=== PATIENT | male | born 1935 | race Asian ===

== ENCOUNTER 2016-02-29 11:38 | Inpatient (IN) | END 2016-03-07 13:15 | disposition home or self-care (01) | DRG 190 ==

== ENCOUNTER 2016-07-15 08:16 | Outpatient (CLI) | payer MEDICARE, MEDICAID ==
[2016-07-15 12:44] LABS: ALBUMIN/GLOBULIN RATIO 1.5 (1.0-2.2); BILIRUBIN,TOTAL 0.6 mg/dL (0.2-1.0); BUN - BLOOD UREA NITROGEN 13 mg/dL (6-20); CALCIUM 9.3 mg/dL (8.5-10.3); CARBON DIOXIDE - CO2 29 mmol/L (21-32); CHLORIDE 102 mmol/L (101-111); CHOLESTEROL 178 mg/dL; CREATININE 1.4 mg/dL (0.6-1.2); GFR - MDRD 48 (>89); GLUCOSE 99 mg/dL (70-100); HDL CHOLESTEROL 59 mg/dL; LDL/HDL RATIO 1.8 (<3.6); SODIUM 140 mmol/L (135-145); TRIGLYCERIDES 65 mg/dL; VLDL CHOLESTEROL 13 mg/dL
[2016-07-15 12:51] LABS: BASOPHILS % (AUTO) 0.5 %; EOSINOPHILS # (AUTO) 0.3 10^3/uL (0.0-0.7); EOSINOPHILS % (AUTO) 3.9 %; HCT - HEMATOCRIT 43.4 % (42.0-52.0); HGB - HEMOGLOBIN 14.1 g/dL (14.0-18.0); LYMPHOCYTES # (AUTO) 2.6 10^3/uL (1.5-3.5); LYMPHOCYTES % (AUTO) 32.3 %; MEAN CORPUSCULAR HEMOGLOBIN 27.1 pg (27.0-31.0); MEAN CORPUSCULAR HGB CONC 32.6 g/dL (32.0-36.0); MEAN CORPUSCULAR VOLUME 83.4 fL (80.0-94.0); MEAN PLATELET VOLUME 7.1 fL (7.4-11.4); MONOCYTES # (AUTO) 0.7 10^3/uL (0.0-1.0); MONOCYTES % (AUTO) 8.7 %; NEUTROPHILS # (AUTO) 4.4 10^3/uL (1.5-6.6); NEUTROPHILS % (AUTO) 54.6 %; RED CELL DISTRIBUTION WIDTH 16.3 % (12.0-15.0); UNCORRECTED WHITE BLOOD COUNT 8.1 x10^3/uL; WHITE BLOOD COUNT 8.1 x10^3/uL (4.8-10.8)
== END 2016-07-15 08:17 | disposition home or self-care (01) ==
LOC: LAB.WCP 08:16
PROVIDERS: ATTEND Family Medicine
DX: I10 Essential (primary) hypertension (principal); E87.6 Hypokalemia; E78.5 Hyperlipidemia, unspecified
CPT/HCPCS: 36415; 80053; 80061; 85025

== ENCOUNTER 2016-08-21 13:01 | Outpatient (CLI) | payer MEDICARE, MEDICAID ==
--- NOTE | 2016-08-21 15:04 | Ultrasound Report ---
LIMITED PELVIC ULTRASOUND: 08/21/2016 CLINICAL HISTORY: Patient has a possible right inguinal hernia. TECHNIQUE: Real-time scanning was performed with community engagement representative static images obtained. FINDINGS: Ultrasound demonstrates the presence of a right inguinal hernia. Hernia is medial to the right femoral artery and vein in the groin. It has a transverse diameter of 3.1 cm and an AP diamete r with Valsalva of 1.2 cm. Through the hernia extends mesenteric fat. No bowel was seen in the ca ia. Hernia is reducible. IMPRESSION: REDUCIBLE RIGHT INGUINAL HERNIA IS NOTED CONTAINING MESENTERIC FAT. DIMENSIONS WITH ANIYA JASS MANEUVER ARE 3.1 X 1.2 CM. JOB #: [id number] EXT JOB #:[id number]
== END 2016-08-21 13:02 | disposition home or self-care (01) ==
LOC: DI 13:01
PROVIDERS: ATTEND Family Medicine
DX: K40.90 Unilateral inguinal hernia, without obstruction or gangrene, not specified as recurrent (principal)
CPT/HCPCS: 76857

== ENCOUNTER 2018-08-01 23:44 | Outpatient (CLI) | payer MEDICARE, MEDICAID | END 2018-08-01 23:45 | disposition critical access hospital (66) | LOC: EMS 23:44 | PROVIDERS: ATTEND Surgery | DX: R46.89 Other symptoms and signs involving appearance and behavior (principal); R63.8 Other symptoms and signs concerning food and fluid intake; R60.0 Localized edema | CPT/HCPCS: A0425; A0427 ==

== ENCOUNTER 2018-08-02 00:01 | Emergency (ER) | payer MEDICARE, MEDICAID ==
--- NOTE | 2018-08-02 00:12 | ED Physician Documentation ---
PD HPI ALTERED MENTAL STATUS - Stated complaint Stated Complaint: AMS - History obtained from History obtained from: Patient, EMS - History of Present Illness Timing - onset: How many days ago (2-3) Timing - duration: Days (The patient's and son say he has had quickly developing illness over the last 3 or 4 days with some cough, decreased appetite, less energy and interaction and today now altered mentation with just moaning and not really speaking as well. He typically is ambulatory with good conversation. He does have COPD and uses home oxygen when needed. He does not typically have good stamina for long activities but is able to perform the main ADLs at home.) Timing - details: Abrupt onset, Still present Quality / character: Less responsive, Confused Associated symptoms: Dyspnea, Cough, General weakness (with less activity, lying in bed and moaning the past day or so.). No: Fever, Headache, NVD (but less appetite) Contributing factors: COPD. No: Anticoagulated, Diabetic, New medication Basline status: Alert and oriented X 3, Ambulatory, Home, Other (home oxygen PRN at 3 lpm and home nebulizer.) Similar symptoms before: Has not had sx before Recently seen: Not recently seen Review of Systems Unable to obtain: AMS (info mainly from his and sons.) Constitutional: denies: Fever Nose: reports: Congestion Throat: denies: Sore throat Cardiac: denies: Chest pain / pressure Respiratory: reports: Dyspnea, Cough, Wheezing GI: reports: Nausea. denies: Abdominal Pain, Vomiting, Diarrhea Skin: denies: Rash Neurologic: reports: Generalized weakness, Altered mental status. denies: Headache PD PAST MEDICAL HISTORY - Past Medical History Cardiovascular: Hypertension Respiratory: Asthma, COPD Endocrine/Autoimmune: None GI: None : Benign prostate hypertrophy HEENT: None Psych: None Musculoskeletal: None Derm: None - Past Surgical History Past Surgical History: Yes HEENT: Cataracts - Present Medications Home Medications: Ambulatory Orders Medication Instructions Recorded Confirmed Lisinopril 10 mg PO DAILY 03/10/14 02/29/16 Albuterol Sulf [Ventolin Hfa 2 puffs Q4H PRN 02/29/16 02/29/16 Inhaler] Fluticasone/Salmeterol [Advair 1 puffs INH BID 02/29/16 02/29/16 250-50 Diskus] Ipratropium/Albuterol [Duoneb] 3 ml INH Q4H PRN 02/29/16 02/29/16 Prednisone 10 mg PO DAILYWM #35 tab.ds.pk 03/07/16 levoFLOXacin [Levofloxacin] 500 mg PO DAILY #5 tablet 03/07/16 - Allergies Allergies/Adverse Reactions: Allergies Allergy/AdvReac Type Severity Reaction Status Date / Time No Known Drug Allergies Allergy Verified 02/29/16 12:02 - Living Situation Living Situation: reports: With spouse/s.o., With family Living Arrangement: reports: At home - Social History Does the pt smoke?: No Smoking Status: Former smoker Does the pt drink ETOH?: No Does the pt have substance abuse?: No - Immunizations Immunizations are current?: Yes - POLST Patient has POLST: No PD ED PE NORMAL - Vitals Vital signs reviewed: Yes - General General: Alert and oriented X 3, Well developed/nourished - HEENT HEENT: Atraumatic, PERRL (nonicteric), Pharynx benign - Neck Neck: Supple, no meningeal sign, No adenopathy - Cardiac Cardiac: RRR, No murmur - Respiratory Respiratory: No respiratory distress. No: Clear bilaterally (There is bilateral wheezing noted without any accessory muscle use. There is congested sounds noted more on the lower lung gaffney. No fine crackles are heard.) - Abdomen Abdomen: Soft, Non distended, Other (He does seem to grimace and seem in pain with palpation of the abdomen generally. There does not feel to be any focal area of tenderness. Bowel sounds are present and diminished. There are some inguinal hernias felt bilaterally which are both soft and reducible.) - Male Male : Other (He does have bilateral inguinal hernias that are somewhat tender. However both of them are reducible which firm steady pressure and do not feel incarcerated.) - Derm Derm: Normal color, Warm and dry - Extremities Extremities: Other (1+ edema in both legs and feet. Dusky color in feet but still with cap refill and DP pulses felt faintly. ) - Neuro Neuro: No motor deficit. No: Alert and oriented X 3, Normal speech (He seems to be moaning mainly. He does answer some questions yes no but does seem a bit interactive but not really talking in sentences.) Results - Vitals Vitals: Vital Signs - 24 hr 08/02/18 08/02/18 08/02/18 00:03 00:41 00:42 Temperature 35.1 C L Heart Rate 72 76 Respiratory 20 18 Rate Blood Pressure 127/53 L 118/92 H O2 Saturation 96 87 L 92 08/02/18 08/02/18 08/02/18 01:14 01:22 01:53 Temperature Heart Rate 69 73 76 Respiratory 26 H 24 24 Rate Blood Pressure 111/23 L 113/33 L O2 Saturation 95 97 08/02/18 08/02/18 08/02/18 02:30 03:04 03:08 Temperature 35.3 C L Heart Rate 81 80 79 Respiratory 14 21 22 Rate Blood Pressure 93/26 L 93/72 O2 Saturation 92 100 08/02/18 08/02/18 08/02/18 03:20 03:38 04:00 Temperature Heart Rate 80 78 78 Respiratory 23 23 21 Rate Blood Pressure 93/46 L 81/32 L 93/72 O2 Saturation 92 92 92 08/02/18 08/02/18 04:04 04:16 Temperature Heart Rate 78 80 Respiratory 24 25 H Rate Blood Pressure 104/25 L 94/73 O2 Saturation 93 92 Oxygen O2 Source Nasal cannula - EKG (time done) 00:08 Rate: Rate (enter#) (62) Rhythm: NSR [place]: Normal Intervals: Normal NV, Wide QRS Ischemia: Normal ST segments. No: ST elevation c/w ischemia, ST depression - Labs Labs: Laboratory Tests 08/02/18 08/02/18 08/02/18 01:10 01:10 01:10 WBC 31.7 H RBC 4.25 L Hgb 12.5 L Hct 40.1 L MCV 94.2 H MCH 29.5 MCHC 31.3 L RDW 14.1 Plt Count 299 MPV 8.0 Neut # (Auto) 30.5 H Lymph # (Auto) 0.4 L [place] # (Auto) 0.7 Eos # (Auto) 0.0 Baso # (Auto) 0.1 Absolute Nucleated RBC 0.05 Nucleated RBC % 0.2 Manual Slide Review Indicated Platelet Estimate NORMAL (130-450,000) Platelet Morphology NORMAL APPEARANCE RBC Morph Micro Appear NORMAL APPEARANCE Sodium 124 L Potassium 7.3 H* Chloride 83 L Carbon Dioxide 11 L* Anion Gap 30.0 H BUN 161 H* Creatinine 9.8 H* Estimated GFR (MDRD) 5 L Glucose 80 Lactic Acid Calcium 8.1 L Magnesium 4.0 H Total Bilirubin 1.4 H AST 195 H ALT 70 H Alkaline Phosphatase 101 Troponin I 0.21 B-Natriuretic Peptide Total Protein 6.9 Albumin 3.2 Globulin 3.7 Albumin/Globulin Ratio 0.9 L Lipase 99 H 08/02/18 08/02/18 08/02/18 01:10 01:10 03:05 WBC RBC Hgb Hct MCV MCH MCHC RDW Plt Count MPV Neut # (Auto) Lymph # (Auto) [place] # (Auto) Eos # (Auto) Baso # (Auto) Absolute Nucleated RBC Nucleated RBC % Manual Slide Review Platelet Estimate Platelet Morphology RBC Morph Micro Appear Sodium 127 L Potassium 6.6 H* Chloride 90 L Carbon Dioxide 12 L* Anion Gap 25.0 H BUN 169 H* Creatinine 8.9 H* Estimated GFR (MDRD) 6 L Glucose 181 H Lactic Acid 4.5 H* Calcium 7.4 L Magnesium Total Bilirubin AST ALT Alkaline Phosphatase Troponin I B-Natriuretic Peptide 82 Total Protein Albumin Globulin Albumin/Globulin Ratio Lipase - Rads (name of study) chest xray Radiology: Prelim report reviewed (Bibasilar infiltrates or atelectasis. Bronchial wall thickening consistent with bronchitis.), See rad report PD MEDICAL DECISION MAKING - ED course Complexity details: reviewed results (He has elevated lactate as well as a significantly elevated creatinine consistent with acute renal failure. This may be dehydration related or may be sepsis related. His white count is elevated at 33,000. Chest x-ray shows some lower infiltrates consistent with pneumonia. He has been given IV fluids and also the typical hyperkalemia treatments. He will presumably need transfer due to his acute renal failure and illnesses since he appears to be still full code. [facility] considered differential (Consider likely sepsis with the progressive mentation changes coughing wheezing and less activity. He is likely under hydrated as well. Will check labs and do nebulizer treatment as well as chest x-ray. He does not look to be in congestive failure.), d/w patient (minimal discussion due to AMS.), d/w family (his and sons - patient without POLST. They are not aware of him expressing any limitations to care. ) - Critical Care Time(min): 55 Time Includes: Direct patient care, Reassess patient, Document care, Coordinate care, Family consult for tx dec Data interpretation: Labs, Pulse ox, CXR Procedures excluded from critical care time: EKG Departure - Departure Disposition: 02 Transfer Acute Care Hosp Clinical Impression: Acute hyperkalemia, COPD exacerbation Altered mental status Qualifiers: Altered mental status type: stupor Qualified Code(s): R40.1 - Stupor Acute renal failure (ARF) Qualifiers: Acute renal failure type: unspecified Qualified Code(s): N17.9 - Acute kidney failure, unspecified Pneumonia Qualifiers: Pneumonia type: due to unspecified organism Laterality: bilateral Lung locatio n: lower lobe of lung Qualified Code(s): J18.1 - Lobar pneumonia, unspecified organism Condition: Stable Record reviewed to determine appropriate education?: Yes
[2018-08-02] MEDS ORDERED: SODIUM CHLORIDE 0.9% 1,000 ML IV ONE ×4 (00:55→04:15)
[2018-08-02] MEDS ORDERED: IPRATROPIUM/ALBUTEROL 3 ML NEB INH STA (00:56)
[2018-08-02 01:26] LABS: BASOPHILS # (AUTO) 0.1 10^3/uL (0.0-0.1); BASOPHILS % (AUTO) 0.3 %; HGB - HEMOGLOBIN 12.5 g/dL (14.0-18.0); LYMPHOCYTES # (AUTO) 0.4 10^3/uL (1.5-3.5); LYMPHOCYTES % (AUTO) 1.1 %; MEAN CORPUSCULAR HEMOGLOBIN 29.5 pg (27.0-31.0); MEAN CORPUSCULAR HGB CONC 31.3 g/dL (32.0-36.0); MEAN CORPUSCULAR VOLUME 94.2 fL (80.0-94.0); MONOCYTES # (AUTO) 0.7 10^3/uL (0.0-1.0); MONOCYTES % (AUTO) 2.2 %; NEUTROPHILS # (AUTO) 30.5 10^3/uL (1.5-6.6); NEUTROPHILS % (AUTO) 96.4 %; PLT - PLATELET COUNT 299 10^3/uL (130-450); RED BLOOD COUNT 4.25 10^6/uL (4.70-6.10); RED CELL DISTRIBUTION WIDTH 14.1 % (12.0-15.0); WHITE BLOOD COUNT 31.7 x10^3/uL (4.8-10.8)
[2018-08-02 01:38] LABS: ALBUMIN 3.2 g/dL (3.2-5.5); ALBUMIN/GLOBULIN RATIO 0.9 (1.0-2.2); BILIRUBIN,TOTAL 1.4 mg/dL (0.2-1.0); CALCIUM 8.1 mg/dL (8.5-10.3); TOTAL PROTEIN 6.9 g/dL (6.7-8.2)
[2018-08-02 01:39] LABS: CREATININE 9.8 mg/dL (0.6-1.2)
[2018-08-02] MEDS ORDERED: DEXTROSE 50% ABBOJECT 25 GM/50 ML SYRINGE IVP STA ×2 (01:51→04:25)
[2018-08-02] MEDS ORDERED: SODIUM BICARBONATE ABBOJECT 50 MEQ/50 ML SYRINGE IVP STA (01:51)
[2018-08-02] MEDS ORDERED: CALCIUM GLUCONATE 1,000 MG in SODIUM CHLORIDE 0.9% 50 ML IV STA (01:51)
[2018-08-02] MEDS ORDERED: INSULIN REGULAR HUMAN 100 UNIT/1 ML 10 ML MDV IVP STA ×2 (01:52→04:25)
--- NOTE | 2018-08-02 01:59 | XRAY Report ---
Reason: chest pain Procedure Date: 08/02/2018 Accession Number: [id number] / [id number] Procedure: XR - Chest 1 View X-Ray CPT Code: 61456 FULL RESULT: EXAM: CHEST RADIOGRAPHY EXAM DATE: 08/02/2018 01:26 AM. CLINICAL HISTORY: Chest pain. COMPARISON: CHEST 2 VIEW PA/LAT 07/21/2017 2:14 PM. TECHNIQUE: 1 view. FINDINGS: Lungs/Pleura: Possible emphysema. Bronchial wall thickening. Bibasilar atelectasis or infiltrate. No obvious pleural effusion. No pneumothorax. Mediastinum: Within exam limitations, heart size is normal to upper normal. Aortic atherosclerosis. Other: Osteopenia. Scoliosis. IMPRESSION: 1. Possible emphysema with bibasilar atelectasis or infiltrate. 2. Bronchial wall thickening. This can be seen with bronchitis or reactive airways disease. RADIA
[2018-08-02] MEDS ORDERED: CEFEPIME 2 GM in SODIUM CHLORIDE 0.9% MINIBAG 100 ML IV STA (02:01)
[2018-08-02 02:04] LABS: PLATELET ESTIMATE, MANUAL NORMAL (130-450,000) (NORMAL); PLATELET MORPHOLOGY NORMAL APPEARANCE (NORMAL); RBC MORPHOLOGY (MULTIPLE) NORMAL APPEARANCE (NORMAL)
[2018-08-02] MEDS ORDERED: ALBUTEROL NEB 2.5 MG/3 ML INH STA (02:57)
[2018-08-02] MEDS ORDERED: VANCOMYCIN INJ 0.75 GM in SODIUM CHLORIDE 0.9% 250 ML IV SCH (03:00)
--- NOTE | 2018-08-02 03:12 | CT Report ---
Reason: altered mentation Procedure Date: 08/02/2018 Accession Number: [id number] / [id number] Procedure: CT - Abdomen/Pelvis WO CPT Code: FULL RESULT: EXAM: CT ABDOMEN AND PELVIS EXAM DATE: 08/02/2018 02:50 AM. CLINICAL HISTORY: Altered mentation. COMPARISONS: None. TECHNIQUE: Routine helical CT imaging was performed through the abdomen and pelvis. IV contrast: None. Enteric contrast: No. Reconstructions: Coronal and sagittal. In accordance with CT protocol optimization, one or more of the following dose reduction techniques were utilized for this exam: automated exposure control, adjustment of mA and/or KV based on patient size, or use of iterative reconstructive technique. FINDINGS: Lung Bases: Unremarkable. Liver: Normal. No masses. Gallbladder/Bile Ducts: Unremarkable. Spleen: Normal. Pancreas: Normal. Adrenal Glands: Normal. Kidneys: Normal. No masses or hydronephrosis. Peritoneal Cavity/Bowel: Diffuse mild small bowel dilatation as well as dilatation of the ascending, transverse, and descending colon, terminating at a loop of colon in the patient's left inguinal hernia. The appendix is well visualized and normal. Pelvic Organs: Normal. The bladder and visualized pelvic organs are within normal limits. Vasculature: 3.4 x 3.2 cm distal abdominal aortic aneurysm, without evidence of extension into the iliacs. Bones: No significant abnormality. Other: Bilateral inguinal hernias, the right containing fat, and the left containing the distal descending colon. IMPRESSION: Mild diffuse small bowel dilatation and dilatation of the colon to the patient's left inguinal hernia. 3.4 cm abdominal aortic aneurysm. RADIA
[2018-08-02] MEDS ORDERED: SODIUM POLYSTYRENE SULFONATE 15 GM/60 ML BOTTLE PO STA (03:22)
[2018-08-02] MEDS ORDERED: SODIUM POLYSTYRENE SULFONATE 15 GM/60 ML BOTTLE PR STA (03:26)
[2018-08-02 03:28] LABS: CALCIUM 7.4 mg/dL (8.5-10.3)
[2018-08-02 03:32] LABS: CREATININE 8.9 mg/dL (0.6-1.2)
[2018-08-02] MEDS ORDERED: SODIUM POLYSTYRENE SULFONATE 15 GM/60 ML BOTTLE ONE (03:49)
[2018-08-02 04:17] VITALS: BP 94/73
[2018-08-02 04:27] LABS: INR 1.2 (0.8-1.2); PT - PROTHROMBIN TIME 13.6 secs (9.9-12.6)
[2018-08-02 04:34] LABS: PARTIAL THROMBOPLASTIN TIME 26.3 secs (24.9-33.3)
== END 2018-08-02 04:40 | disposition short-term general hospital (02) ==
LOC: EDUNIT# → ED 00:01
DX: N17.9 Acute kidney failure, unspecified (principal); J44.0 Chronic obstructive pulmonary disease with (acute) lower respiratory infection; J18.1 Lobar pneumonia, unspecified organism; J44.1 Chronic obstructive pulmonary disease with (acute) exacerbation; E87.5 Hyperkalemia; R41.82 Altered mental status, unspecified; K40.20 Bilateral inguinal hernia, without obstruction or gangrene, not specified as recurrent; I10 Essential (primary) hypertension; Z87.891 Personal history of nicotine dependence
CPT/HCPCS: 36415; 71045; 74176; 80048; 80053; 83605; 83690; 83735; 83880; 84484; 85025; 85610; 85730; 87040; 93005; 94640; 94664; 96365; 96368; 96375; 99284; 99291; A9270; J1815; J3370; J7040; 99285

== ENCOUNTER 2018-08-02 04:37 | Outpatient (CLI) | payer MEDICARE, MEDICAID | END 2018-08-02 04:38 | disposition short-term general hospital (02) | LOC: EMS 04:37 | PROVIDERS: ATTEND Surgery | DX: N19 Unspecified kidney failure (principal); R41.82 Altered mental status, unspecified | CPT/HCPCS: A0425; A0426 ==